=== PATIENT | female | born 1935 | race Hispanic/Latino ===

== ENCOUNTER 2017-08-12 10:54 | Emergency (ER) | payer MEDICARE ==
[2017-08-12 10:54] VITALS: BMI 29.5
[2017-08-12 11:50] VITALS: RESP 18; TEMP 98.3
--- NOTE | 2017-08-12 12:52 | ED PDOC ---
Arrival/HPI - General Chief Complaint: Back Pain Time Seen by Provider: 08/12/17 11:07 Historian: Patient - History of Present Illness Narrative History of Present Illness (Text): 08/12/17 12:48 81 year old female hx of CAD, Afib and not on anticoagulation, presents to the ED today for left lower back pain, Patient has chronic back pain and receives pain management shots; she received 3 shots 1 week ago. Patient reports that 2 days ago while making the bed, she experienced a spasm of her lower back and had trouble walking secondary to pain. She was evaluated at another hospital and given a shot of Toradol with temporary relief two days ago and again yesterday. Otherwise, patient denies any nausea/vomiting/headache/dizziness/ difficulty breathing/chest pain/abdomen pain/numbness/tingling/loss of limb function/pain with urination. 08/12/17 12:58 Time/Duration: Other (2 days) Symptom Onset: Sudden Symptom Course: Unchanged Activities at Onset: Light Context: Home Past Medical History - Provider Review Nursing Documentation Reviewed: Yes - Travel History Have you recently traveled outside [place] w/in the past 3 mons?: No - Infectious Disease Hx of Infectious Diseases: None - Reproductive Menopause: Yes - Cardiac Hx Pacemaker: No - Pulmonary Hx Bronchitis: Yes - Neurological Hx Paralysis: No - Hematological/Oncological Hx Blood Transfusions: No Hx Blood Transfusion Reaction: No - Musculoskeletal/Rheumatological Hx Musculoskeletal Disorders: Yes - Psychiatric Hx Emotional Abuse: No Hx Physical Abuse: No Hx Substance Use: No - Surgical History Hx Angioplasty: Yes Hx Cardiac Catheterization: Yes Hx Coronary Stent: Yes - Anesthesia Hx Anesthesia Reactions: Yes (NAUSEA/VOMITING FROM VERSED AND FENTANYL) Hx Malignant Hyperthermia: No - Suicidal Assessment Feels Threatened In Home Enviroment: No Family/Social History - Physician Review Nursing Documentation Reviewed: Yes Family/Social History: Unknown Family HX Smoking Status: Never Smoked Hx Alcohol Use: Yes (SOCIALLY) Hx Substance Use: No Allergies/Home Meds Allergies/Adverse Reactions: Allergies aspirin Allergy (Verified 08/12/17 11:48) RASH Home Medications: Home Meds Medication Instructions Recorded Confirmed Clopidogrel [Plavix] 75 mg PO DAILY 05/09/16 08/12/17 Metoprolol Tartrate [Lopressor] 100 mg PO DAILY 05/09/16 08/12/17 Olmesartan [BenicarNf] 40 mg PO QAM 05/10/16 08/12/17 Vit D3 2,000 iu PO DAILY 08/12/17 Review of Systems - Physician Review All systems were reviewed & negative as marked: Yes - Review of Systems Constitutional: Normal Eyes: Normal ENT: Normal Respiratory: Normal Cardiovascular: Normal Gastrointestinal: Normal Genitourinary Female: Normal Musculoskeletal: Other (left lower back muscle discomfort) Skin: Normal Neurological: Normal Endocrine: Normal Hemo/Lymphatic: Normal Psychiatric: Normal Physical Exam Vital Signs Reviewed: Yes Vital Signs Temp Pulse Resp BP Pulse Ox 08/12/17 16:29 63 18 156/66 H 97 08/12/17 13:35 55 L 18 139/50 L 100 08/12/17 11:49 98.3 F 61 18 125/72 97 Temperature: Afebrile Blood Pressure: Normal Pulse: Regular Respiratory Rate: Normal Appearance: Positive for: Well-Appearing, Non-Toxic, Comfortable Pain Distress: None Mental Status: Positive for: Alert and Oriented X 3 - Systems Exam Head: Present: Atraumatic, Normocephalic Pupils: Present: PERRL Extroacular Muscles: Present: EOMI Conjunctiva: Present: Normal Mouth: Present: Moist Mucous Membranes Neck: Present: Normal Range of Motion Respiratory/Chest: Present: Clear to Auscultation, Good Air Exchange. No: Respiratory Distress, Accessory Muscle Use Cardiovascular: Present: Regular Rate and Rhythm, Normal S1, S2. No: Murmurs Abdomen: Present: Normal Bowel Sounds. No: Tenderness, Distention, Peritoneal Signs Back: Present: Other (left lower muscle discomfort). No: CVA Tenderness, Midline Tenderness, Paraspinal Tenderness Upper Extremity: Present: Normal Inspection. No: Cyanosis, Edema Lower Extremity: Present: Normal Inspection. No: Edema Neurological: Present: GCS=15, CN II-XII Intact, Speech Normal Skin: Present: Warm, Dry, Normal Color. No: Rashes Psychiatric: Present: Alert, Oriented x 3, Normal Insight, Normal Concentration Medical Decision Making ED Course and Treatment: 08/12/17 12:54 you were treated in the ED today for left lower back pain otherwise without any nausea/vomiting/headache/dizziness/difficulty breathing/chest pain/abdomen pain/ numbness/tingling/loss of limb function/pain with urination. You were otherwise breathing easily, smiling with your daughter, good strength/sensation, walking easily, clear lungs, no abdomen tenderness, your vision was such no fever temp 98.3, stable heart rate 61, stable breathing rate 18, excellent oxygen level 97 % room air, blood pressure 125/72, you have blood tests no infection count 7.8, stable blood level hemoglobin 12.2/platelets 154, stable chemistry sodium 142, potassium 4.1, chloride 108, bun 33, creatinine 1.5 which slightly higher than your prior 1.1 and thus intravenous fluids given, glucose 133 mildly elevated, heart blood test <0.01, urine test no acute sign of infection, radiology possible small bowel thickening, ECG similar to prior, observation done in the ED with improvement, had a long discussion with you and your daughter about admission but you wanted to go home and your daughter also discussed with Dr. Juarez who stated you can go home, recommended flexeril, counselled to rest and use heating pad and thus discharged home with daughter who is driving. 1. Recommend flexeril as directed for muscle pain. 2. Recommend follow-up primary care [address] Juarez, to review symptoms, referral to urology clinic for mildly elevated creatinine level to ensure no complications, referral to gastroenterology clinic for possible bowel wall thickening, esophageal thickening and hiatal hernia to ensure no complications, spinal clinic for demineralization to ensure no complications. 3. If any worsening pain, fever, chills, nausea, vomiting, difficulty breathing, numbness, loss of limb function , pain with urination or any medical condition then return to the Emergency department. Plan: -- CT scan of abdomen and pelvis -- EKG -- Urine culture -- Urinalysis -- Labs -- Reassess and disposition 08/12/17 14:22 CT Scan impression: Small bowel wall thickening, may reflect enteritis. Correlate clinically. 08/12/17 16:43 08/12/17 16:43 08/12/17 16:44 Reassessment Condition: Improved - Lab Interpretations Lab Results: 08/12/17 13:30 08/12/17 15:50 Lab Results 08/12/17 15:50: Sodium 142, Potassium 4.1, Chloride 108 H, Carbon Dioxide 24, Anion Gap 14, BUN 33 H, Creatinine 1.5 H, Est GFR ( Amer) 40, Est GFR ( Non-Af Amer) 33, Random Glucose 133 H, Calcium 9.4, Magnesium 2.1, Total Bilirubin 0.6, AST 27, ALT 18, Alkaline Phosphatase 64, Lactate Dehydrogenase 648, Total Creatine Kinase 429 H, CK-MB (CK-2) 1.1, CK-MB (CK-2) % Cancelled, Troponin I < 0.01, Total Protein 7.1, Albumin 3.9, Globulin 3.2, Albumin/ Globulin Ratio 1.2 08/12/17 13:30: PT 12.4, INR 1.08, APTT 26.4 08/12/17 13:30: Urine Color Yellow, Urine Appearance Clear, Urine pH 5.5, Ur Specific [place] 1.025, Urine Protein Trace H, Urine Glucose (UA) Negative, Urine Ketones Negative, Urine Blood Trace-lysed H, Urine Nitrate Negative, Urine Bilirubin Negative, Urine Urobilinogen 0.2, Ur Leukocyte Esterase Negative , Urine RBC 2 - 5, Urine WBC 0 - 2, Ur Epithelial Cells 4 - 5, Amorphous Sediment Few, Urine Bacteria Mod 08/12/17 13:30: WBC 7.8, RBC 3.78, Hgb 12.2, Hct 35.5 L, MCV 93.9, MCH 32.3, MCHC 34.4, RDW 13.3, Plt Count 154, MPV 10.8, Gran % 66.8, Lymph % (Auto) 24.1, Cassia % (Auto) 6.7 H, Eos % (Auto) 2.1, Baso % (Auto) 0.3, Gran # 5.19, Lymph # 1.9, Cassia # 0.5, Eos # 0.2, Baso # 0.02 I have reviewed the lab results: Yes (cr 1.5) - RAD Interpretation Radiology Orders: 08/12/17 12:55 ABD & PELVIS W/O PO OR IV CONT [CT] Stat - Medication Orders Current Medication Orders: Discontinued Medications Acetaminophen (Tylenol 325mg Tab) 975 mg PO STAT STA Stop: 08/12/17 14:24 Last Admin: 08/12/17 14:27 Dose: 975 mg MAR Pain/Vitals Document 08/12/17 14:27 OCS (Rec: 08/12/17 14:27 OCS [id number] Pain Reassessment Is This A Pain ReAssessment? Yes Sleep Is patient sleeping during reassessment? No Presence of Pain Presence of Pain Yes Pain Scale Used Pain Scale Used Numeric Location Left, Right or Bilateral Right Upper or Lower Lower Pain Location Body Site Back Description Constant Intensity 8 Scale Used Numeric Pain Behavior Irritability Aggravating Factors ADL's Cyclobenzaprine HCl (Flexeril) 10 mg PO STAT STA Stop: 08/12/17 15:16 Last Admin: 08/12/17 15:45 Dose: 10 mg Sodium Chloride (Sodium Chloride 0.9%) 500 mls @ 999 mls/hr IV .Q31M STA Stop: 08/12/17 17:12 Last Admin: 08/12/17 16:52 Dose: 999 mls/hr eMAR Start Stop Document 08/12/17 16:52 OCS (Rec: 08/12/17 16:53 OCS [id number]) Intravenous Solution Start Date 08/12/17 Start Time 16:52 End Date 08/12/17 End time 17:22 Total Infusion Time 30 - Scribe Statement The provider has reviewed the documentation as recorded by the Roshanibdevante Hardy All medical record entries made by the Roshanibdevante were at my direction and personally dictated by me. I have reviewed the chart and agree that the record accurately reflects my personal performance of the history, physical exam, medical decision making, and the department course for this patient. I have also personally directed, reviewed, and agree with the discharge instructions and disposition. Disposition/Present on Arrival - Present on Arrival Any Indicators Present on Arrival: No History of DVT/PE: No History of Uncontrolled Diabetes: No Urinary Catheter: No History of Decub. Ulcer: No History Surgical Site Infection Following: None - Disposition Have Diagnosis and Disposition been Completed?: Yes Diagnosis: Muscle strain, Renal insufficiency Disposition: HOME/ ROUTINE Disposition Time: 17:25 Patient Plan: Discharge Condition: IMPROVED Additional Instructions: you were treated in the ED today for left lower back pain otherwise without any nausea/vomiting/headache/dizziness/difficulty breathing/chest pain/abdomen pain/ numbness/tingling/loss of limb function/pain with urination. You were otherwise breathing easily, smiling with your daughter, good strength/sensation, walking easily, clear lungs, no abdomen tenderness, your vision was such no fever temp 98.3, stable heart rate 61, stable breathing rate 18, excellent oxygen level 97 % room air, blood pressure 125/72, you have blood tests no infection count 7.8, stable blood level hemoglobin 12.2/platelets 154, stable chemistry sodium 142, potassium 4.1, chloride 108, bun 33, creatinine 1.5 which slightly higher than your prior 1.1 and thus intravenous fluids given, glucose 133 mildly elevated, heart blood test <0.01, urine test no acute sign of infection, radiology possible small bowel thickening, ECG similar to prior, observation done in the ED with improvement, had a long discussion with you and your daughter about admission but you wanted to go home and your daughter also discussed with Dr. Juarez who stated you can go home, recommended flexeril, counselled to rest and use heating pad and thus discharged home with daughter who is driving. 1. Recommend flexeril as directed for muscle pain. 2. Recommend follow-up primary care [address] Juarez, to review symptoms, referral to urology clinic for mildly elevated creatinine level to ensure no complications, referral to gastroenterology clinic for possible bowel wall thickening, esophageal thickening and hiatal hernia to ensure no complications, spinal clinic for demineralization to ensure no complications. 3. If any worsening pain, fever, chills, nausea, vomiting, difficulty breathing, numbness, loss of limb function , pain with urination or any medical condition then return to the Emergency department. Prescriptions: Cyclobenzaprine [Cyclobenzaprine HCl] 10 mg PO Q8 PRN 4 Days #12 tab PRN Reason: muscle pain Referrals: Josi Juarez MD [Primary Care Provider] - Follow up with primary Forms: [employer] ([place])
[2017-08-12 13:37] LABS: BASO # 0.02 [, K/mm3] (0.0-2.0); BASO % 0.3 % (0.0-3.0); EOS # 0.2 (0.0-0.7); EOS % 2.1 % (1.5-5.0); GRAN # 5.19 (1.4-6.5); GRAN % 66.8 % (50.0-68.0); HEMOGLOBIN 12.2 g/dL (12.0-16.0); LYMPH # 1.9 (1.2-3.4); LYMPH % 24.1 % (22.0-35.0); MEAN CELL VOLUME 93.9 fl (80.0-105.0); MEAN CORPUSCULAR HEMOGLOBIN 32.3 pg (25.0-35.0); MEAN CORPUSCULAR HGB CONC 34.4 g/dl (31.0-37.0); MEAN PLATELET VOLUME 10.8 fl (7.0-11.0); MONO # 0.5 (0.1-0.6); MONO % 6.7 % (1.0-6.0); RBC 3.78 [, 10^6/uL] (3.5-6.1); RED CELL DISTRIBUTION WIDTH 13.3 % (11.5-14.5); WHITE BLOOD COUNT 7.8 [, 10^3/ul] (4.5-11.0)
[2017-08-12 13:49] LABS: PH,URINE 5.5 (4.7-8.0); URINE BILIRUBIN NEGATIVE (NEGATIVE); URINE BLOOD TRACE-LYSED (NEGATIVE); URINE GLUCOSE (UA) NEGATIVE (NEGATIVE); URINE LEUKOCYTE ESTERASE NEGATIVE Leu/uL (NEGATIVE); URINE NITRATE NEGATIVE (NEGATIVE); URINE PROTEIN TRACE mg/dL (<30 mg/dL); URINE UROBILINOGEN 0.2 E.U./dL (<1 E.U./dL)
[2017-08-12 13:56] LABS: INR 1.08 (0.93-1.08); PARTIAL THROMBOPLASTIN TIME 26.4 Seconds (25.1-36.5); PROTHROMBIN TIME 12.4 SECONDS (9.4-12.5)
[2017-08-12 13:58] LABS: URINE APPEARANCE CLEAR (CLEAR); URINE COLOR YELLOW (YELLOW)
[2017-08-12 13:59] LABS: URINE AMORPHOUS SEDIMENT FEW; URINE BACTERIA MOD (NEG); URINE WBC 0 - 2 /hpf (0-6)
--- NOTE | 2017-08-12 14:13 | CT ---
PROCEDURE: CT Abdomen and Pelvis without Oral or IV contrast. HISTORY: 81yoF, left flank pain COMPARISON: None available. TECHNIQUE: Contiguous axial images of the abdomen and pelvis. No oral or IV contrast administered. Coronal and Sagittal reformats generated and reviewed. Radiation dose: Total exam DLP = 752.88 mGy-cm. This CT exam was performed using one or more of the following dose reduction techniques: Automated exposure control, adjustment of the mA and/or kV according to patient size, and/or use of iterative reconstruction technique. FINDINGS: There is limited evaluation of the solid organs without the administration of IV contrast. LOWER THORAX: Mild bibasilar atelectasis. There is no visible pleural effusion or pneumothorax.Dense coronary artery calcifications. Small hiatal hernia/distal esophageal wall thickening. LIVER: Unremarkable. GALLBLADDER AND BILE DUCTS: Unremarkable. PANCREAS: Unremarkable. No SPLEEN: Unremarkable. ADRENALS: Unremarkable. KIDNEYS AND URETERS: No hydronephrosis or obstructing renal calculus. BLADDER: The urinary bladder appears unremarkable. REPRODUCTIVE: Uterus is present. APPENDIX: Not visualized. No secondary signs of acute appendicitis. BOWEL: The stomach is nondistended. Lack of oral contrast limits evaluation for bowel pathology. The bowel loops appear within normal limits of caliber without evidence of intestinal obstruction. Small bowel wall thickening, may reflect enteritis. PERITONEUM: No significant free fluid. No definite free air. LYMPH NODES: No bulky lymphadenopathy identified. VASCULATURE: Atherosclerotic calcifications. No aortic aneurysm. BONES: Evidence of L3 vertebroplasty. Osseous demineralization. Degenerative changes. Scoliosis. OTHER FINDINGS: None. IMPRESSION: Small bowel wall thickening, may reflect enteritis. Correlate clinically. Additional findings as above.
[2017-08-12 16:22] LABS: ALB/GLOB RATIO 1.2 (1.1-1.8); ALBUMIN 3.9 g/dL (3.0-4.8); ALT/SGPT 18 U/L (7-56); AST/SGOT 27 U/L (14-36); BLOOD UREA NITROGEN 33 mg/dL (7-21); CALCIUM 9.4 mg/dL (8.4-10.5); GFR AFRICAN-AMERICAN 40; GFR NON-AFRICAN AMERICAN 33; MAGNESIUM 2.1 mg/dL (1.7-2.2)
[2017-08-12 16:35] LABS: CK-MB 1.1 ng/mL (0.0-3.6); TROPONIN I < 0.01 ng/mL
[2017-08-12] MEDS ORDERED: Sodium Chloride 0.9% 500 ML IV STA (16:42)
[2017-08-12 17:11] VITALS: O2SAT 97
[2017-08-12 17:52] VITALS: BP 155/67; PULSE 59
== END 2017-08-12 17:40 | disposition home or self-care (01) ==
LOC: ED 10:54
DX: N28.9 Disorder of kidney and ureter, unspecified (principal); S39.012A Strain of muscle, fascia and tendon of lower back, initial encounter; X58.XXXA Exposure to other specified factors, initial encounter; Y92.009 Unspecified place in unspecified non-institutional (private) residence as the place of occurrence of the external cause; I48.91 Unspecified atrial fibrillation; I25.10 Atherosclerotic heart disease of native coronary artery without angina pectoris
CPT/HCPCS: 74176; 80053; 81001; 82550; 82553; 83615; 83735; 84484; 85025; 85610; 85730; 87086; 99283; J7040

== ENCOUNTER 2017-08-15 12:40 | Emergency (ER) | payer MEDICARE ==
[2017-08-15 12:40] VITALS: BMI 29.5
[2017-08-15 16:15] VITALS: TEMP 98.2
--- NOTE | 2017-08-15 16:56 | MRI ---
PROCEDURE: MRI lumbar spine dated 08/15/2017 HISTORY: i increased LBP - ? degeneration at L2-L3 COMPARISON: Comparison made with CT scan abdomen pelvis 08/14/2017. TECHNIQUE: Multiecho multiplanar sequences were performed through the lumbar spine without the use of intravenous contrast. FINDINGS: The at current study reveals mild edema seen within the superior aspect of the T11 segment suggesting mild possible early developing acute osteoporotic compression fracture. There is also some mild edema within the inferior L2 segment which could be secondary to developing compression deformity or edema within developing Schmorl's node. Some minimal what remains within L3 segment partially surrounds what is felt to represent a kyphoplasty cement described in detail below As mentioned above , there is dark T2 signal within the left inferior aspect of the L3 segment ( apparent kyphoplasty cement) within the partially collapsed L3 segment. Concave appearance of the inferior and to a lesser degree superior endplates of this segment. . Scattered chronic appearing Schmorl's nodes seen in the lower thoracic and upper lumbar region however the remaining vertebral bodies otherwise exhibit relatively normal stature. . There is a kyphotic angulation deformity centered at the L2-L3 level. The remaining vertebral bodies otherwise exhibit normal alignment. Facets normally aligned. At the L5-S1 level, there is disc desiccation and minor posterior disc space narrowing. Small broad-based disc bulge ridge complex extends into the proximal inferior margin of the left exit foramen with minimal extension into the right exit foramen. . Facet joints also mildly hypertrophic. Left exit foramen is stenotic with significant compression of the left-sided L5 nerve root. The right exit foramen is adequate At the L4-L5 level, there is disc desiccation and minor posterior disc space narrowing. Asymmetric disc herniation ridge complex larger on the left than right with extension into the proximal inferior margin of the left exit foramen. Facet joints also hypertrophic. . Changes result in mild compression of the left anterolateral border of the thecal sac and left-sided foraminal stenosis. Right exit foramen is adequate. At the L3-L4 level, there is disc desiccation and mild posterior disc space narrowing. Small broad-based disc ridge complex extends into the proximal inferior margins of both exit foramina. Facet joints also quite hypertrophic. Changes result in central canal stenosis which also includes compressive effects along the lateral borders of the thecal sac by encroaching facets. Exit foramina are stenotic bilaterally more so on the left than right. At the L2-L3 level, there is marked disc desiccation and disc space narrowing. Small broad-based disc ridge complex extends into the proximal inferior margins of both exit foramina. The facets are hypertrophic and flavum buckled. Changes result in bilateral lateral recess and central canal stenosis with bilateral foraminal stenosis. At the L1-L2 level, there is mild disc desiccation. Disc space heights relatively maintained. Small right parasagittal and proximal foraminal disc herniation is present which results in compressive effects along the right anterolateral border of the thecal sac and mild posterior displacement of the nearly exiting intrathecal L2 nerve roots more so on the right side. Right exit foramen is narrowed. Left exit foramen is adequate. Mild degenerative spondylosis seen at the remaining on lower thoracic levels most notably however at the T10-T11 level. Conus terminates at approximately the mid L1 level. IMPRESSION: Mild edema seen within the superior aspect of the T11 segment suggesting mild possible early developing acute osteoporotic compression fracture. There is also some mild edema within the inferior L2 segment which could be secondary to developing compression deformity or edema within developing Schmorl's node. Some minimal rib edema remains within L3 segment partially surrounding the superior aspect of kyphoplasty cement. Mild to fairly significant multilevel degenerative spondylosis. There is also a levoscoliosis centered at the L2-L3 level. See above discussion for level by level details
--- NOTE | 2017-08-15 18:01 | ED PDOC ---
Arrival/HPI - General Chief Complaint: Back Pain Time Seen by Provider: 08/15/17 13:17 Historian: Patient - History of Present Illness Narrative History of Present Illness (Text): 08/15/17 13:40 A 81 year old female, whose past medical history includes CAD, Atrial fibrillation, and not on anticoagulents, presents to the emergency department complaining of increasing back pain over past week. States being sent by PMD. Patient reports having history of lower back pain and is given injections from pain management (last one was 2 weeks ago). Patient denies any recent fall or trauma. PMD: Dr. Juarez Time/Duration: 1 week Symptom Onset: Gradual Symptom Course: Worsening Past Medical History - Provider Review Nursing Documentation Reviewed: Yes - Infectious Disease Hx of Infectious Diseases: None - Cardiac Hx Pacemaker: No - Pulmonary Hx Bronchitis: Yes - Neurological Hx Paralysis: No - Hematological/Oncological Hx Blood Transfusions: No Hx Blood Transfusion Reaction: No - Musculoskeletal/Rheumatological Hx Musculoskeletal Disorders: Yes - Psychiatric Hx Emotional Abuse: No Hx Physical Abuse: No Hx Substance Use: No - Surgical History Hx Angioplasty: Yes Hx Cardiac Catheterization: Yes Hx Coronary Stent: Yes - Anesthesia Hx Anesthesia: Yes Hx Anesthesia Reactions: Yes (NAUSEA/VOMITING FROM VERSED AND FENTANYL) Hx Malignant Hyperthermia: No - Suicidal Assessment Feels Threatened In Home Enviroment: No Family/Social History - Physician Review Nursing Documentation Reviewed: Yes Family/Social History: No Known Family HX Smoking Status: Never Smoked Hx Alcohol Use: Yes (SOCIALLY) Hx Substance Use: No Allergies/Home Meds Allergies/Adverse Reactions: Allergies aspirin Allergy (Verified 08/12/17 11:48) RASH Home Medications: Home Meds Medication Instructions Recorded Confirmed Clopidogrel [Plavix] 75 mg PO DAILY 05/09/16 08/15/17 Metoprolol Tartrate [Lopressor] 100 mg PO DAILY 05/09/16 08/15/17 Olmesartan [BenicarNf] 40 mg PO QAM 05/10/16 08/15/17 Vit D3 2,000 iu PO DAILY 08/12/17 08/15/17 Review of Systems - Physician Review All systems were reviewed & negative as marked: Yes - Review of Systems Constitutional: absent: Other (no recent fall/trauma) Musculoskeletal: Back Pain (increasing) Physical Exam Vital Signs Reviewed: Yes Vital Signs Temp Pulse Resp BP Pulse Ox 08/15/17 20:00 76 16 132/85 99 08/15/17 18:20 75 17 135/80 98 08/15/17 16:14 98.2 F 78 18 136/78 98 Temperature: Afebrile Blood Pressure: Normal Pulse: Regular Respiratory Rate: Normal Appearance: Positive for: Well-Appearing Pain Distress: None Mental Status: Positive for: Alert and Oriented X 3 - Systems Exam Head: Present: Atraumatic, Normocephalic Pupils: Present: PERRL Extroacular Muscles: Present: EOMI Conjunctiva: Present: Normal Respiratory/Chest: Present: Clear to Auscultation, Good Air Exchange. No: Respiratory Distress, Accessory Muscle Use Cardiovascular: Present: Regular Rate and Rhythm, Normal S1, S2. No: Murmurs Abdomen: Present: Normal Bowel Sounds. No: Tenderness, Distention, Peritoneal Signs Back: Present: Other (diffused lower back pain) Neurological: Present: GCS=15, CN II-XII Intact, Speech Normal Psychiatric: Present: Alert, Oriented x 3, Normal Insight, Normal Concentration Medical Decision Making ED Course and Treatment: 08/15/17 13:44 Impression: 81 year old female with increasing back pain. Physical exam shows diffused lower back pain. Plan: -- Spinal Canal Lumbar MRI -- Xanax -- Reassess and disposition Prior Visits: Notes and results from previous visits were reviewed. Patient was last seen in the emergency department on 08/12/2017 for left lower back pain. Patient was d/ c home. Progress Notes: 08/15/2017 16:54 Spinal Canal Lumbar MRI FINDINGS: The at current study reveals mild edema seen within the superior aspect of the T -11 segment suggesting mild possible early developing acute osteoporotic compression fracture. There is also some mild edema within the inferior L2 segment which could be secondary to developing compression deformity or edema within developing Schmorl's node. Some minimal what remains within L3 segment partially surrounds what is felt to represent a kyphoplasty cement described in detail below. As mentioned above, there is dark T2 signal within the left inferior aspect of the L3 segment (apparent kyphoplasty cement) within the partially collapsed L3 segment. Concave appearance of the inferior and to a lesser degree superior endplates of this segment. Scattered chronic appearing Schmorl's notes seen in the lower thoracic and upper lumbar region however the remaining vertebral bodies otherwise exhibit relatively normal stature. There is a phyphotic angulation deformity centered at the L2-L3 level. The remaining vertebral bodies otherwise exhibit normal alignment. Facets normally aligned. At the L5-S1 level, there is desiccation and minor posterior disc space narrowing. Small broad-based disc bulge ridge complex extends into the proximal inferior margin of the left exit foramen with minimal extension into the right exit foramen. Facet joints also mildly hypertrophic. Left exit foramen is stenotic with significant compression of the left-sided L5 nerve root. The right exit foramen is adequate. At the L4-L5 level, there is disc desiccation and minor posterior disc space narrowing. Asymmetric disc herniation ridge complex larger on the left than right with extension into the proximal inferior margin of the left exit foramen. Facet joints also hypertrophic. Changes result in mild compression of the left anterolateral border of the thecal sac and left-sided foraminal stenosis. Right exit foramen is adequate. At the L3-L4 level, there is disc desiccation and mild posterior disc space narrowing. Small broad-based disc bulge ridge complex extends into the proximal inferior margins of both exit foramina. Facet joints also quite hypertrophic. Changes result in central canal stenosis which also includes compressive effects along the lateral borders of the thecal sac by encroaching facets. Exit foramina are stenotic bilaterally more so on the left than right. At L2-L3 level, there is marked disc desiccation and disc space narrowing. Small broad-based disc bulge ridge complex extends into the proximal inferior margins of both exit foramina. The facets are hypertrophic and flavum buckled. Changes result in bilateral lateral recess and central canal stenosis with bilateral foraminal stenosis. At L1-L2 level, there is mild disc desiccation. Disc space heights relatively maintained. Small right parasagittal and proximal foraminal disc herniation is present which results in compressive effects along the right anterolateral border of the thecal sac and mild posterior displacement of the nearly exiting intrathecal L2 nerve roots more so on the right side. Right exit foramen is narrowed. Left exit foramen is adequate. Mild degenerative spondylois seen at the remaining on lower thoracic levels most notably however at the T10-T11 level. Conus terminates at approximately the mid L1 level. IMPRESSION: Mild edema seen within the superior aspect of the T11 segment suggesting mild possible early developing acute osteoporotic suggesting mild possible early developing acute osteoporotic compression fracture. There is also some mild edema within the inferior L2 segment which could be secondary to developing compression deformity or edema within developing Schmorl's node. Some minimal rib edema remains with L3 segment partially surrounding superior aspect of kyphoplasty cement. Mild to fairly significant multilevel degenerative spondylosis. There is also a levoscoliosis centered at the L2-L3 level. See above discussion for level by level details. Dictator: Diomedes Reddy MD - RAD Interpretation Radiology Orders: 08/15/17 13:44 SPINAL CANAL LUMBAR W/O CONT [MRI] Stat - Medication Orders Current Medication Orders: Discontinued Medications Alprazolam (Xanax) 0.25 mg PO STAT STA PRN Reason: Protocol Stop: 08/15/17 13:46 Last Admin: 08/15/17 14:00 Dose: 0.25 mg Methylprednisolone (Solu-Medrol) 250 mg IVP STAT STA Stop: 08/15/17 17:41 Last Admin: 08/15/17 18:20 Dose: 250 mg IVP Administration Document 08/15/17 18:20 SF (Rec: 08/15/17 18:39 SF [id number]) Charges for Administration # of IVP Administrations 1 - Scribe Statement The provider has reviewed the documentation as recorded by the Gena Grimes Provider Scribe Attestation: All medical record entries made by the Scribe were at my direction and personally dictated by me. I have reviewed the chart and agree that the record accurately reflects my personal performance of the history, physical exam, medical decision making, and the department course for this patient. I have also personally directed, reviewed, and agree with the discharge instructions and disposition. Disposition/Present on Arrival - Present on Arrival Any Indicators Present on Arrival: No History of DVT/PE: No History of Uncontrolled Diabetes: No Urinary Catheter: No History of Decub. Ulcer: No History Surgical Site Infection Following: None - Disposition Have Diagnosis and Disposition been Completed?: Yes Diagnosis: Back pain, Compression fracture Disposition: HOME/ ROUTINE Disposition Time: 17:00 Patient Problems: Current Active Problems Problem Status Onset Back pain Acute Compression fracture Acute Condition: STABLE Discharge Instructions (ExitCare): Vertebral Compression Fracture (ED) Additional Instructions: Thank you for letting us take care of you today. The emergency medical care you received today was directed at your acute symptoms. If you were prescribed any medication, please fill it and take as directed. It may take several days for your symptoms to resolve. Return to the Emergency Department if your symptoms worsen, do not improve, or if you have any other problems. Please contact your doctor or call one of the physicians/clinics you have been referred to that are listed on the Patient Visit Information form that is included in your discharge packet. Bring any paperwork you were given at discharge with you along with any medications you are taking to your follow up visit. Our treatment cannot replace ongoing medical care by a primary care provider (PCP) outside of the emergency department. Thank you for allowing the [email or web address] team to be part of your care today. Follow up with Dr. Juarez in the morning. Call your pain management doctor tomorrow morning for a follow up visit. Prescriptions: Pregabalin [Lyrica] 50 mg PO BID #14 cap tiZANidine [Zanaflex] 4 mg PO HS #7 tab Referrals: Josi Juarez MD [Primary Care Provider] - Follow up with primary Forms: [employer] (Estonian)
[2017-08-15 22:28] VITALS: BP 132/85; PULSE 76; RESP 16; O2SAT 99
--- NOTE | 2017-08-16 08:15 | CON ---
DATE: 08/15/2017 NEUROLOGY CONSULTATION CHIEF COMPLAINT: Back pain. HISTORY OF PRESENT ILLNESS: This is an 81-year-old woman with history of coronary artery disease; atrial fibrillation, now on anticoagulation, who came for left lower back pain radiating across the back and occasionally radiating down into the legs. She has a history of chronic back pain, which she received epidural shots by Pain Management about a week ago which seldomly helped. She has been having spasms of her lower back and trouble walking due to pain for the past few days. She has no difficulty with lifting the leg up singly one by one. Currently, no paresthesias in the legs. No problems with defecating or urinating. No focal weakness of the extremities. She underwent MRI of the lumbar spine, which showed mild edema seen within the superior aspect of the T11 segment, suggesting mild possible early development of acute osteoporotic compression fracture. There is also some mild edema within the inferior segment, which could be secondary to developing a compression deformity or edema with developing smaller nodule. There is some minimal rib edema remains at the L3 segment superior aspect of the , otherwise, there is levoscoliosis and multi-degenerative spondylosis. PAST MEDICAL HISTORY: Atrial fibrillation, coronary artery disease, and hypertension. SOCIAL HISTORY: No illicit drug use, smoking, or EtOH abuse. ALLERGIES: ALLERGIC TO ASPIRIN. REVIEW OF SYSTEMS: A 14-point review of systems is negative except as in the HPI. FAMILY HISTORY: Noncontributory. MEDICATIONS: Reviewed by nurse's reconciliation sheet. PHYSICAL EXAMINATION: VITAL SIGNS: Temperature afebrile, pulse rate of 78, blood pressure of 136/78, respiratory rate of 18, and oxygen saturation 98% via room air. GENERAL: The patient is sitting up in bed, in no acute distress. HEENT: Head is atraumatic and normocephalic. PERRLA. Extraocular muscles are intact. NECK: Supple. No JVD. No adenopathy noted. LUNGS: Clear to auscultation. No adventitious sounds. HEART: S1 and S2, normal rate and rhythm. No murmurs, rubs, or gallops. ABDOMEN: Soft, nontender, nondistended. Bowel sounds are present. EXTREMITIES: No clubbing, no cyanosis. Peripheral pulses 2+ felt bilaterally. NEUROLOGIC: The patient is alert and oriented to person, place, month, and year. Speech is fluent without any errors. Cranial nerves II through XII intact. Motor exam, moves all extremities equally, but difficulty to lift both legs up in the air due to severe pain in the lower back. Sensory exam: Decreased light touch and pinprick. Proprioception intact. Vibration intact. DTRs are 2+ throughout, one at the ankles. Coordination, [id number] intact. Gait is deferred for now. LABORATORY DATA: Sodium 142, potassium 4.1, chloride 108, carbon dioxide of 24, BUN of 33, creatinine of 1.5, and random glucose of 133. ASSESSMENT AND PLAN: This is an 81-year-old woman with history of coronary artery disease; atrial fibrillation, now on anticoagulation, just on Plavix; dyslipidemia; hypertension, who presented with left lower back pain radiating across the back, as well as across the lower back, occasionally low back pain radiating down into the legs with some intermittent paresthesias, who came in for intractable back pain, had an MRI of the lumbosacral spine which showed a mild edema within the superior aspect of the T11 segment, suggesting mild possible early development of acute osteoporotic compression fracture and some mild edema with inferior L2 segment which could be secondary to developing a compression deformity or edema with developing smaller nodule. There is multilevel levoscoliosis, especially at L2 and L3. At this time, low back pain is secondary to underlying T11 segment mild acute osteoporotic compression fracture superimposed underlying multilevel degenerative disk disease and possible inferior L2 segment developing compression fracture. RECOMMENDATIONS: At this time, we will recommend, 1. Lyrica 50 mg p.o. b.i.d., and Zanaflex 4 mg p.o. at bedtime for muscle spasm and neuropathic relief. 2. One stat dose of IV Solu-Medrol 250 mg for inflammation in the back. 3. We will need to see her outpatient pain management, Dr. Blake, for further intervention such as an epidural injection in the T11 and L2 segment. 4. Consider outpatient workup for multiple myeloma since she has acute compression fractures without any cause. 5. Follow up in my office. Once again, thank you for this consult. She is clinically stable for discharge. Brett Rapp MD
== END 2017-08-15 20:00 | disposition home or self-care (01) ==
LOC: ED 12:40
DX: M54.5 Low back pain (principal); M48.54XA Collapsed vertebra, not elsewhere classified, thoracic region, initial encounter for fracture; I10 Essential (primary) hypertension; I48.91 Unspecified atrial fibrillation; Z79.01 Long term (current) use of anticoagulants; I25.10 Atherosclerotic heart disease of native coronary artery without angina pectoris; E78.5 Hyperlipidemia, unspecified
CPT/HCPCS: 72148; 96374; 99284; J2930